=== PATIENT | male | born 1990 ===

== ENCOUNTER 2020-06-11 12:56 | Inpatient (IN) | payer OTHER, SELFPAY ==
[2020-06-11] MEDS ORDERED: SODIUM CHLORIDE 0.9% 1000 ML IV SOLN IV ONE (13:08)
--- NOTE | 2020-06-11 13:10 | Emergency Department Report ---
Blank Doc - Documentation Documentation: 30-year-old male that presents with SOB, fever, tachycardia. Has positive COVID and was sent by PCP. 1- This initial assessment/diagnostic orders/clinical plan/ treatment(s) is/are subject to change based on pt's health status, clinical progression and re- assessment by fellow clinical providers in the ED. Further treatment and workup at subsequent clinical provers discretion. Patient/guardians urged not to elope from ED as their condition may be serious if not clinically assessed and managed. 2-main ed 3- labs
[2020-06-11] MEDS ORDERED: ACETAMINOPHEN 325 MG TAB PO ONE (13:25)
[2020-06-11 13:37] LABS: Basophils % (Auto) 0.3 % (0.0-1.8); Eosinophils % (Auto) 0.1 % (0.0-4.3); Lymphocytes # (Auto) 1.4 K/mm3 (1.2-5.4); Lymphocytes % (Auto) 14.9 % (13.4-35.0); Mean Corpuscular HGB Conc 36 % (32-34); Mean Corpuscular Volume 91 fl (84-94); Monocytes % (Auto) 10.7 % (0.0-7.3); Platelet Count 215 K/mm3 (140-440); Red Blood Count 5.31 M/mm3 (3.65-5.03); Red Cell Distribution Width 13.5 % (13.2-15.2)
[2020-06-11 13:39] LABS: Hematocrit 48.1 % (35.5-45.6); Hemoglobin 17.2 gm/dl (11.8-15.2)
[2020-06-11] MEDS ORDERED: dexAMETHasone 4 MG/ML VIAL IV ONE (13:55)
[2020-06-11 13:57] LABS: Alanine Aminotransferase 69 units/L (7-56); Albumin 3.7 g/dL (3.9-5); BUN/Creatinine Ratio 16; Blood Urea Nitrogen 13 mg/dL (9-20); Calcium 9.3 mg/dL (8.4-10.2); Hemolysis Index 7
[2020-06-11] MEDS ORDERED: AZITHROMYCIN 500 MG in SODIUM CHLORIDE 0.9% 250ML 250 ML IV SCH (14:00)
[2020-06-11] MEDS ORDERED: cefTRIAXone/NS 2 GM/100 ML 2 GM/100 ML BAG IV SCH (14:00)
--- NOTE | 2020-06-11 14:02 | Emergency Department Report ---
ED Fever HPI - General Chief Complaint: Fever Stated Complaint: POSS COVID Time Seen by Provider: 06/11/20 13:08 Source: patient Exam Limitations: no limitations - History of Present Illness Initial Comments: 30-year-old male with a past medical history of obesity and 1 cigarette a day smoker presents to the hospital with complaints of cough and shortness of breath for the past 5 days. Patient had outpatient COVID test today that was positive and sent here for evaluation by his PMD. Dyspnea worse with exertion. Patient presents with a fever of 101.1. He had diarrhea several days ago that has since resolved. ED Review of Systems ROS: Stated complaint: POSS COVID Other details as noted in HPI Comment: All other systems reviewed and negative ED Past Medical Hx - Past Medical History Previous Medical History?: No - Social History Smoking Status: Current Every Day Smoker (one cigarette daily) Substance Use Type: None ED Physical Exam - General Limitations: Language Barrier - Other Other exam information: General: No acute distress Head: Atraumatic Eyes: normal appearance ENT: Moist mucous membranes Neck: Normal appearance, no midline tenderness Chest: Clear to auscultation bilaterally CV: Regular rate and rhythm Abdomen: Soft, normal bowel sounds, nontender, nondistended, no rebound or guarding Back: Normal inspection Extremity: Normal inspection, full range of motion Neuro: Alert O x 3, no facial asymmetry, speech clear, no gross motor sensory deficit Psych: Appropriate behavior Skin: No rash ED Course Vital Signs 06/11/20 13:03 Temperature 101.1 F H Pulse Rate 112 H Respiratory 20 Rate Blood Pressure 159/82 O2 Sat by Pulse 94 Oximetry ED Medical Decision Making - Lab Data Result diagrams: 06/11/20 13:16 06/11/20 13:16 Lab Results 06/11/20 06/11/20 06/11/20 Range/Units 13:16 13:16 13:16 WBC 9.4 (4.5-11.0) K/mm3 RBC 5.31 H (3.65-5.03) M/mm3 Hgb 17.2 H (11.8-15.2) gm/dl Hct 48.1 H (35.5-45.6) % MCV 91 (84-94) fl MCH 32 (28-32) pg MCHC 36 H (32-34) % RDW 13.5 (13.2-15.2) % Plt Count 215 (140-440) K/mm3 Lymph % (Auto) 14.9 (13.4-35.0) % [place] % (Auto) 10.7 H (0.0-7.3) % Eos % (Auto) 0.1 (0.0-4.3) % Baso % (Auto) 0.3 (0.0-1.8) % Lymph # 1.4 (1.2-5.4) K/mm3 [place] # 1.0 H (0.0-0.8) K/mm3 Eos # 0.0 (0.0-0.4) K/mm3 Baso # 0.0 (0.0-0.1) K/mm3 Seg Neutrophils % 74.0 H (40.0-70.0) % Seg Neutrophils # 7.0 (1.8-7.7) K/mm3 D-Dimer (0-234) ng/mlDDU Sodium 139 (137-145) mmol/L Potassium 4.6 (3.6-5.0) mmol/L Chloride 101.1 (98-107) mmol/L Carbon Dioxide 23 (22-30) mmol/L Anion Gap 20 mmol/L BUN 13 (9-20) mg/dL Creatinine 0.8 (0.8-1.3) mg/dL Estimated GFR > 60 ml/min BUN/Creatinine Ratio 16 % Glucose 139 H (75-100) mg/dL Lactic Acid 2.80 H* (0.7-2.0) mmol/L Calcium 9.3 (8.4-10.2) mg/dL Total Bilirubin 0.70 (0.1-1.2) mg/dL AST 61 H (5-40) units/L ALT 69 H (7-56) units/L Alkaline Phosphatase 100 (35-129) units/L Lactate Dehydrogenase (91-180) units/L C-Reactive Protein (0.00-1.30) mg/dL Total Protein 8.7 H (6.3-8.2) g/dL Albumin 3.7 L (3.9-5) g/dL Albumin/Globulin Ratio 0.7 % Procalcitonin (<0.15) ng/mL 06/11/20 06/11/20 06/11/20 Range/Units 13:16 13:16 13:16 WBC (4.5-11.0) K/mm3 RBC (3.65-5.03) M/mm3 Hgb (11.8-15.2) gm/dl Hct (35.5-45.6) % MCV (84-94) fl MCH (28-32) pg MCHC (32-34) % RDW (13.2-15.2) % Plt Count (140-440) K/mm3 Lymph % (Auto) (13.4-35.0) % [place] % (Auto) (0.0-7.3) % Eos % (Auto) (0.0-4.3) % Baso % (Auto) (0.0-1.8) % Lymph # (1.2-5.4) K/mm3 [place] # (0.0-0.8) K/mm3 Eos # (0.0-0.4) K/mm3 Baso # (0.0-0.1) K/mm3 Seg Neutrophils % (40.0-70.0) % Seg Neutrophils # (1.8-7.7) K/mm3 D-Dimer 382.11 H (0-234) ng/mlDDU Sodium (137-145) mmol/L Potassium (3.6-5.0) mmol/L Chloride (98-107) mmol/L Carbon Dioxide (22-30) mmol/L Anion Gap mmol/L BUN (9-20) mg/dL Creatinine (0.8-1.3) mg/dL Estimated GFR ml/min BUN/Creatinine Ratio % Glucose 138 H (75-100) mg/dL Lactic Acid (0.7-2.0) mmol/L Calcium (8.4-10.2) mg/dL Total Bilirubin (0.1-1.2) mg/dL AST (5-40) units/L ALT (7-56) units/L Alkaline Phosphatase (35-129) units/L Lactate Dehydrogenase 477 H (91-180) units/L C-Reactive Protein 5.40 H (0.00-1.30) mg/dL Total Protein (6.3-8.2) g/dL Albumin (3.9-5) g/dL Albumin/Globulin Ratio % Procalcitonin 0.09 (<0.15) ng/mL - EKG Data -: EKG Interpreted by Wy EKG shows normal: sinus rhythm, intervals (qtc 429), ST-T waves (no stemi) Rate: normal (96) - Radiology Data Radiology results: report reviewed CHEST 1 VIEW 06/11/2020 12:54 PM INDICATION / CLINICAL INFORMATION: cough/fever. COVID-19 Status: Positive COMPARISON: None available. FINDINGS: SUPPORT DEVICES: None. HEART / MEDIASTINUM: No significant abnormality. LUNGS / PLEURA: Moderately extensive bilateral patchy pulmonary opacities. No pneumothorax. ADDITIONAL FINDINGS: No significant additional findings. IMPRESSION: 1. Bilateral pulmonary opacities which can be seen in atypical/viral pneumonia. - Medical Decision Making Patient is culture positive with COVID associated pneumonia and mild hypoxia. Risk factor of obesity and a smoker. Patient will be admitted to the hospital for further treatment. Rocephin, azithromycin, IV fluids, and Decadron 6 mg IV initiated in the ED. ID consult ordered as well as repeat COVID tests and order set. Hospitalist to admit Critical Care Time: No Critical care attestation.: If time is entered above; I have spent that time in minutes in the direct care of this critically ill patient, excluding procedure time. ED Disposition Clinical Impression: COVID-19, Bilateral pneumonia, Obesity, Hypoxia, Smoker Disposition: 09 OP ADMIT IP TO THIS HOSP Is pt being admited?: Yes Condition: Stable Time of Disposition: 14:32
[2020-06-11 14:04] LABS: C-Reactive Protein 5.4 mg/dL (0.00-1.30)
--- NOTE | 2020-06-11 14:19 | XRay Report ---
CHEST 1 VIEW 06/11/2020 12:54 PM INDICATION / CLINICAL INFORMATION: cough/fever. COVID-19 Status: Positive COMPARISON: None available. FINDINGS: SUPPORT DEVICES: None. HEART / MEDIASTINUM: No significant abnormality. LUNGS / PLEURA: Moderately extensive bilateral patchy pulmonary opacities. No pneumothorax. ADDITIONAL FINDINGS: No significant additional findings. IMPRESSION: 1. Bilateral pulmonary opacities which can be seen in atypical/viral pneumonia. Signer Name: Geo Jade MD Signed: 06/11/2020 2:14 PM Workstation Name: [id number]
--- NOTE | 2020-06-11 14:36 | History and Physical Report ---
History of Present Illness Chief complaint: I am sick History of present illness: 30 YO Male with Obesity Hypoventilation Syndrome, Nicotine Dependence presents to ED for evaluation. Patient states that he has been "feeling sick" over the past 1 week with progressively worsening symptoms over the same timeframe. Kat wright states he has experienced dry cough, shortness of breath, fatigue, malaise, decreased exercise tolerance, generalized weakness, body aches, and fever to 101.1 F over the past 5 days. Patient was seen and evaluated by his primary care physician after having tested positive for marie virus as an outpatient. EMS was notified and upon arrival the patient was found to be in distress. The patient was placed on supplemental oxygen and transported to [facility] for further care and evaluation of the aforementioned symptoms. Patient seen and evaluated in the emergency department. Lab and imaging studies reviewed. Patient found to have a pulse oximetry of 88% with exertion which is consistent with acute hypoxemic respiratory failure. Patient was also found to have a chest x-ray which revealed bilateral pneumonia. The patient was placed on supplemental oxygen as well as initiated on pneumonia protocol as well as the COVID-19 protocol and admitted to medical floor. Infectious disease service consulted in ED. Coronavirus PCR is ordered and pending at the time of the admission. Patient denies chest pain, palpitations, trauma, syncope, known ill contacts. No prior admission for review. No medication list for reconciliation at the time of admission. Past History Past Medical History: other (See HPI) Past Surgical History: No surgical history, Other (Reviewed) Social history: single, smoking. denies: alcohol abuse, prescription drug abuse Family history: hypertension Medications and Allergies Allergies Allergy/AdvReac Type Severity Reaction Status Date / Time No Known Allergies Allergy Unverified 06/11/20 13:08 Active Meds: Active Medications Ceftriaxone Sodium (Rocephin/Ns 2 Gm/100 Ml) 2 gm in 100 mls @ 200 mls/hr IV Q24HR NELLIE; Protocol Last Admin: 06/11/20 14:12 Dose: 200 mls/hr Documented by: Azithromycin 500 mg/ Sodium (Chloride) 250 mls @ 250 mls/hr IV Q24HR NELLIE; Pro tocol Last Admin: 06/11/20 14:19 Dose: 250 mls/hr Documented by: Review of Systems Constitutional: fever, fatigue, weakness, malaise, no weight loss, no weight gain Ears, nose, mouth and throat: no ear pain, no ear discharge, no tinnitis, no decreased hearing, no nose pain Cardiovascular: no chest pain, no orthopnea, no palpitations, no rapid/irregular heart beat, no edema Respiratory: cough, cough with sputum, shortness of breath, no excessive sputum, no hemoptysis, no pleurisy, no pain Gastrointestinal: no nausea, no vomiting, no diarrhea, no constipation Rectal: no pain, no incontinence, no bleeding Musculoskeletal: no neck stiffness, no neck pain, no shooting arm pain, no arm numbness/tingling, no low back pain, no shooting leg pain Integumentary: no rash, no pruritis, no redness, no sores, no wounds Neurological: no transient paralysis, no paralysis, no parathesias, no tingling Psychiatric: no anxiety, no change in sleep habits, no sleep disturbances, no insomnia, no hypersomnia, no change in libido, no suicidal ideation Endocrine: no cold intolerance, no heat intolerance, no polyphagia, no polyuria, no nocturia Hematologic/Lymphatic: no easy bruising, no easy bleeding Allergic/Immunologic: no urticaria, no wheezing, no persistent infections, no anaphylaxis Exam - Constitutional Vitals: Temp Pulse Resp BP Pulse Ox 101.1 F H 112 H 20 159/82 94 06/11/20 13:03 06/11/20 13:03 06/11/20 13:03 06/11/20 13:03 06/11/20 13:03 General appearance: Present: mild distress, obese - EENT Eyes: Present: PERRL ENT: hearing intact, clear oral mucosa - Neck Neck: Present: supple, normal ROM - Respiratory Respiratory effort: labored Respiratory: bilateral: diminished, rhonchi - Cardiovascular Rhythm: other (Tachycardia) Heart Sounds: Present: S1 & S2. Absent: rub, click - Extremities Extremities: pulses symmetrical, No edema Peripheral Pulses: within normal limits - Abdominal General gastrointestinal: Present: soft, non-tender, non-distended, normal bowel sounds Male genitourinary: Present: normal - Integumentary Integumentary: Present: clear, warm, dry - Musculoskeletal Musculoskeletal: generalized weakness - Psychiatric Psychiatric: appropriate mood/affect, intact judgment & insight - Neurologic Neurologic: CNII-XII intact, moves all extremities Results - Labs CBC & Chem 7: 06/11/20 13:16 06/11/20 13:16 Labs: Abnormal lab results 06/11/20 06/11/20 06/11/20 Range/Units 13:16 13:16 13:16 RBC 5.31 H (3.65-5.03) M/mm3 Hgb 17.2 H (11.8-15.2) gm/dl Hct 48.1 H (35.5-45.6) % MCHC 36 H (32-34) % [place] % (Auto) 10.7 H (0.0-7.3) % [place] # 1.0 H (0.0-0.8) K/mm3 Seg Neutrophils % 74.0 H (40.0-70.0) % D-Dimer (0-234) ng/mlDDU Glucose 139 H (75-100) mg/dL Lactic Acid 2.80 H* (0.7-2.0) mmol/L AST 61 H (5-40) units/L ALT 69 H (7-56) units/L Lactate Dehydrogenase (91-180) units/L C-Reactive Protein (0.00-1.30) mg/dL Total Protein 8.7 H (6.3-8.2) g/dL Albumin 3.7 L (3.9-5) g/dL 06/11/20 06/11/20 Range/Units 13:16 13:16 RBC (3.65-5.03) M/mm3 Hgb (11.8-15.2) gm/dl Hct (35.5-45.6) % MCHC (32-34) % [place] % (Auto) (0.0-7.3) % [place] # (0.0-0.8) K/mm3 Seg Neutrophils % (40.0-70.0) % D-Dimer 382.11 H (0-234) ng/mlDDU Glucose 138 H (75-100) mg/dL Lactic Acid (0.7-2.0) mmol/L AST (5-40) units/L ALT (7-56) units/L Lactate Dehydrogenase 477 H (91-180) units/L C-Reactive Protein 5.40 H (0.00-1.30) mg/dL Total Protein (6.3-8.2) g/dL Albumin (3.9-5) g/dL Assessment and Plan - Patient Problems (1) Acute hypoxemic respiratory failure Current Visit: Yes Status: Acute Plan to address problem: Chest x-ray, supplemental oxygen, pulse oximetry, nebulizer therapy via MDI, pulmonary toilet, incentive spirometry, prone positioning while in bed. (2) Obesity hypoventilation syndrome Current Visit: Yes Status: Acute Plan to address problem: Supplemental oxygen, pulse oximetry, nebulizer therapy as clinically indicated, balanced diet, increase physical activity at discharge. (3) Bilateral pneumonia Current Visit: No Status: Acute Plan to address problem: Pneumonia protocol: Chest x-ray, CBC, BMP, IV antibiotic therapy, supplemental oxygen, pulse oximetry, blood culture. (4) COVID-19 Current Visit: No Status: Acute Plan to address problem: Coronavirus protocol: Infectious disease service consulted in ED, coronavirus PCR ordered in ED, contact precautions, isolation precautions, prone positioning while in bed, incentive spirometry, IV steroid therapy, supportive care. (5) DVT prophylaxis Current Visit: Yes Status: Acute Plan to address problem: SCD to bilateral lower extremities while in bed, prophylactic heparin
[2020-06-11] MEDS ORDERED: ONDANSETRON 4 MG/2 ML INJ IV PRN (14:37)
[2020-06-11] MEDS ORDERED: ACETAMINOPHEN 325 MG TAB PO PRN (14:37)
[2020-06-11 16:50] LABS: Bacteria,Urine 1+ /HPF (Negative); Bilirubin,Urine NEG (Negative); Blood,Urine SM (Negative); Color,Urine Amber (Yellow); Mucus,Urine 2+ /HPF
[2020-06-11 16:53] LABS: Protein,Urine >500 mg/dL (Negative)
[2020-06-11] MEDS ORDERED: REMDESIVIR 200 MG in SODIUM CHLORIDE 0.9% 250ML 250 ML IV ONE (17:44)
--- NOTE | 2020-06-11 17:44 | Consultation ---
History of Present Illness - Reason for Consult Consult date: 06/11/20 - History of Present Illness 30-year-old male past medical history obesity, nicotine dependence admitted to the hospital with 1 week of feeling ill. He notes that since the onset of symptoms been progressively worse. He complains of dry cough, shortness of breath, fatigue, fevers and myalgias. He went to have primary care physician and tested positive for COVID-19 at that time. He was recovering at home, however symptoms became worse, as such he came to the hospital and was found to be hypoxic. Febrile to 101.1 with a normal white count. Currently seeing ceftriaxone azithromycin. Procalcitonin was normal. Blood cultures are currently pending. Imaging personally reviewed: Chest x-ray: Bilateral opacities Review of Systems: Bold if positive, otherwise negative General: fevers, chills, rigors HEENT: visual disturbance, diplopia, eye pain Respiratory: cough, sputum, hemoptysis, shortness of breath Cardiovascular: chest pain, syncope Gastrointestinal: nausea, vomiting, diarrhea, abdominal pain Genitourinary: dysuria, hematuria, flank pain Musculoskeletal: neck pain, back pain, joint pain, edema Neurologic: headaches, seizures Hematologic: easy bruising or bleeding Endocrine: night sweats, acute weight loss Skin: rash, jaundice, redness Psychiatric: suicidal, homicidal ideation Past History Past Medical History: other (See HPI) Past Surgical History: No surgical history, Other (Reviewed) Social history: single, smoking. denies: alcohol abuse, prescription drug abuse Family history: hypertension Medications and Allergies Allergies Allergy/AdvReac Type Severity Reaction Status Date / Time No Known Allergies Allergy Unverified 06/11/20 13:08 Active Meds: Active Medications Acetaminophen (Tylenol) 650 mg PO Q4H PRN PRN Reason: Pain MILD(1-3)/Fever >100.5/[place] Heparin Sodium (Porcine) (Heparin) 5,000 unit SUB-Q Q12HR NELLIE Ceftriaxone Sodium (Rocephin/Ns 2 Gm/100 Ml) 2 gm in 100 mls @ 200 mls/hr IV Q24HR NELLIE; Protocol Stop: 06/13/20 23:59 Last Infusion: 06/11/20 14:42 Dose: Infused Documented by: Azithromycin 500 mg/ Sodium (Chloride) 250 mls @ 250 mls/hr IV Q24HR NELLIE; Protocol Stop: 06/13/20 23:59 Last Infusion: 06/11/20 15:20 Dose: Infused Documented by: Methylprednisolone Sodium Succinate (Solu-Medrol) 40 mg IV Q8HR [facility] Ondansetron HCl (Zofran) 4 mg IV Q8H PRN PRN Reason: Nausea And Vomiting Sodium Chloride (Sodium Chloride Flush Syringe 10 Ml) 10 ml IV BID NELLIE Sodium Chloride (Sodium Chloride Flush Syringe 10 Ml) 10 ml IV PRN PRN PRN Reason: LINE FLUSH Physical Examination - Physical Exam Narrative exam: Physical exam deferred due to PPE conservation strategy. Please refer to primary team's note. - Constitutional Vitals: Vital Signs Temp Pulse Resp BP Pulse Ox 100.3 F H 87 25 H 117/70 96 06/11/20 15:00 06/11/20 15:00 06/11/20 15:00 06/11/20 15:00 06/11/20 15:00 Temperature -Last 24 Hours Temperature 100.3 F Temperature 101.1 F Results - Labs CBC & Chem 7: 06/11/20 13:16 06/11/20 13:16 Labs: Abnormal lab results 06/11/20 06/11/20 06/11/20 Range/Units 13:16 13:16 13:16 RBC 5.31 H (3.65-5.03) M/mm3 Hgb 17.2 H (11.8-15.2) gm/dl Hct 48.1 H (35.5-45.6) % MCHC 36 H (32-34) % [place] % (Auto) 10.7 H (0.0-7.3) % [place] # 1.0 H (0.0-0.8) K/mm3 Seg Neutrophils % 74.0 H (40.0-70.0) % D-Dimer (0-234) ng/mlDDU Glucose 139 H (75-100) mg/dL Lactic Acid 2.80 H* (0.7-2.0) mmol/L Ferritin (30.0-300.0) ng/mL AST 61 H (5-40) units/L ALT 69 H (7-56) units/L Lactate Dehydrogenase (91-180) units/L C-Reactive Protein (0.00-1.30) mg/dL Total Protein 8.7 H (6.3-8.2) g/dL Albumin 3.7 L (3.9-5) g/dL 06/11/20 06/11/20 06/11/20 Range/Units 13:16 13:16 13:16 RBC (3.65-5.03) M/mm3 Hgb (11.8-15.2) gm/dl Hct (35.5-45.6) % MCHC (32-34) % [place] % (Auto) (0.0-7.3) % [place] # (0.0-0.8) K/mm3 Seg Neutrophils % (40.0-70.0) % D-Dimer 382.11 H (0-234) ng/mlDDU Glucose 138 H (75-100) mg/dL Lactic Acid (0.7-2.0) mmol/L Ferritin 2458.0 H (30.0-300.0) ng/mL AST (5-40) units/L ALT (7-56) units/L Lactate Dehydrogenase 477 H (91-180) units/L C-Reactive Protein 5.40 H (0.00-1.30) mg/dL Total Protein (6.3-8.2) g/dL Albumin (3.9-5) g/dL Assessment and Plan Cultures: Blood culture 06/11/2020 pending A/P: 28-year-old man past medical history obesity, nicotine dependence admitted with COVID-19 #Acute hypoxemic respiratory failure: Likely secondary to COVID-19 infection. Currently on nasal cannula #Severe COVID-19 pneumonia: Patient presented with a week of symptoms, chest x- ray with diffuse bilateral infiltrates, admission O2 sats 88% on room air. Patient is increased for micro-thrombotic and thromboembolic events. #Obesity: Associated with worse COVID-19 outcomes Recs: -Start Remdesivir 200 mg IV q day x 1 followed by 100 mg IV q day x 4 days. CrCl>30. Pharmacy notified. -Continue steroids per primary. -Obtain daily inflammatory markers - ferritin, Ddimer, CRP, LDH -Stop antibiotics as procalcitonin normal. -Anticoagulation per protocol Thank you for the consult, we will continue to follow. Gayathri Mansfield MD [facility] ([facility] M: [phone] O: [phone] F: [phone]
[2020-06-11] MEDS ORDERED: REMDESIVIR 100 MG VIAL IV ONE (18:00)
[2020-06-11] MEDS: SODIUM CHLORIDE 0.9% 50 ML IVPB IV SCH (21:23)
[2020-06-11] MEDS: methylPREDNISolone Sod Succinate 40 MG/1 ML INJ IV SCH (21:24)
[2020-06-11] MEDS: HEPARIN 5,000 UNIT/1 ML VIAL SUB-Q SCH (21:24)
[2020-06-12] MEDS: methylPREDNISolone Sod Succinate 40 MG/1 ML INJ IV SCH ×3 (05:06→21:54)
[2020-06-12 06:06] LABS: Basophils % (Auto) 0.7 % (0.0-1.8); Hematocrit 45.4 % (35.5-45.6); Hemoglobin 15.7 gm/dl (11.8-15.2); Lymphocytes # (Auto) 1.2 K/mm3 (1.2-5.4); Lymphocytes % (Auto) 24.3 % (13.4-35.0); Mean Corpuscular HGB Conc 35 % (32-34); Mean Corpuscular Volume 91 fl (84-94); Monocytes # (Auto) 0.5 K/mm3 (0.0-0.8); Monocytes % (Auto) 10.2 % (0.0-7.3); Platelet Count 221 K/mm3 (140-440); Red Cell Distribution Width 13.8 % (13.2-15.2)
[2020-06-12 06:20] LABS: Blood Urea Nitrogen 12 mg/dL (9-20); Calcium 8.3 mg/dL (8.4-10.2); Hemolysis Index 7
[2020-06-12 06:25] LABS: BUN/Creatinine Ratio 20
[2020-06-12] MEDS ORDERED: ALBUTEROL 8.5 GM MDI INHALATION IH PRN (08:00)
[2020-06-12] MEDS: HEPARIN 5,000 UNIT/1 ML VIAL SUB-Q SCH ×2 (09:32→21:55)
--- NOTE | 2020-06-12 12:13 | Progress Note ---
Assessment and Plan --Acute hypoxemic respiratory failure due to COVID 19 PNA cont supplemental oxygen, pulse oximetry, nebulizer therapy via MDI, pulmonary t oilet, incentive spirometry, prone positioning while in bed. cont to treat for COVID 19 -- COVID 19 pneumonia Infectious disease service consulted in ED, contact precautions, isolation precautions, prone positioning while in bed Started on empiric steroid, also started on Ramdesivir for 5 days Follow inflammatory markers --Obesity diet and exercise recommendation when clinically stable -- DVT prophylaxis SCD to bilateral lower extremities while in bed, prophylactic heparin 06/12; continue IV steroid and continue Ramdesivir. Continue to follow inflammatory markers. Subjective Date of service: 06/12/20 Interval history: Patient seen and examined. Medical records and medication list reviewed. No acute event overnight noted by the RN. Patient complains of difficulty breathing on exertion and dry cough. Patient is tolerating diet. Discussed plan of care at bedside with patient. Objective - Exam Narrative Exam: GENERAL: well-developed and well-nourished male lying on bed appeared to be in no discomfort. HEENT: Normocephalic. Atraumatic. No conjunctival congestion or icterus. Patient has moist mucous membranes. NECK: Supple. Trachea midline. CHEST/LUNGS: Clear to auscultated bilaterally, breathing nonlabored. No wheezes crackles or rhonchi. HEART/CARDIOVASCULAR: Regular in rate and rhythm. S1 and S2 positive. ABDOMEN: Abdomen is soft, nontender. Patient has normal bowel sounds. SKIN: There is no rash. Warm and dry. NEURO: No focal motor deficit. Follows command. MUSCULOSKELETAL: No joint effusion or tenderness. EXTRIMITY: No edema, no cyanosis or clubbing. PSYCH: Cooperative. - Constitutional Vitals: Vital Signs - 12hr 06/12/20 06/12/20 06/12/20 05:04 07:35 08:47 Temperature 98.3 F Pulse Rate 78 Respiratory 20 18 Rate Blood Pressure 107/58 O2 Sat by Pulse 91 95 Oximetry - Labs CBC & Chem 7: 06/12/20 05:25 06/12/20 05:25 Labs: Abnormal lab results 06/11/20 06/11/20 06/11/20 Range/Units 13:16 13:16 13:16 RBC 5.31 H (3.65-5.03) M/mm3 Hgb 17.2 H (11.8-15.2) gm/dl Hct 48.1 H (35.5-45.6) % MCHC 36 H (32-34) % [place] % (Auto) 10.7 H (0.0-7.3) % [place] # 1.0 H (0.0-0.8) K/mm3 Seg Neutrophils % 74.0 H (40.0-70.0) % D-Dimer (0-234) ng/mlDDU Creatinine (0.8-1.3) mg/dL Glucose 139 H (75-100) mg/dL Lactic Acid 2.80 H* (0.7-2.0) mmol/L Calcium (8.4-10.2) mg/dL Ferritin (30.0-300.0) ng/mL AST 61 H (5-40) units/L ALT 69 H (7-56) units/L Lactate Dehydrogenase (91-180) units/L C-Reactive Protein (0.00-1.30) mg/dL Total Protein 8.7 H (6.3-8.2) g/dL Albumin 3.7 L (3.9-5) g/dL 06/11/20 06/11/20 06/11/20 Range/Units 13:16 13:16 13:16 RBC (3.65-5.03) M/mm3 Hgb (11.8-15.2) gm/dl Hct (35.5-45.6) % MCHC (32-34) % [place] % (Auto) (0.0-7.3) % [place] # (0.0-0.8) K/mm3 Seg Neutrophils % (40.0-70.0) % D-Dimer 382.11 H (0-234) ng/mlDDU Creatinine (0.8-1.3) mg/dL Glucose 138 H (75-100) mg/dL Lactic Acid (0.7-2.0) mmol/L Calcium (8.4-10.2) mg/dL Ferritin 2458.0 H (30.0-300.0) ng/mL AST (5-40) units/L ALT (7-56) units/L Lactate Dehydrogenase 477 H (91-180) units/L C-Reactive Protein 5.40 H (0.00-1.30) mg/dL Total Protein (6.3-8.2) g/dL Albumin (3.9-5) g/dL 06/11/20 06/12/20 06/12/20 Range/Units 20:23 05:25 05:25 RBC (3.65-5.03) M/mm3 Hgb 15.7 H (11.8-15.2) gm/dl Hct (35.5-45.6) % MCHC 35 H (32-34) % [place] % (Auto) 10.2 H (0.0-7.3) % [place] # (0.0-0.8) K/mm3 Seg Neutrophils % (40.0-70.0) % D-Dimer (0-234) ng/mlDDU Creatinine 0.6 L (0.8-1.3) mg/dL Glucose 192 H (75-100) mg/dL Lactic Acid 2.30 H* (0.7-2.0) mmol/L Calcium 8.3 L (8.4-10.2) mg/dL Ferritin (30.0-300.0) ng/mL AST (5-40) units/L ALT (7-56) units/L Lactate Dehydrogenase (91-180) units/L C-Reactive Protein (0.00-1.30) mg/dL Total Protein (6.3-8.2) g/dL Albumin (3.9-5) g/dL
[2020-06-12] MEDS: REMDESIVIR 100 MG in SODIUM CHLORIDE 0.9% 250ML 250 ML IV SCH (21:54)
[2020-06-12] MEDS: SODIUM CHLORIDE 0.9% 50 ML IVPB IV SCH (21:57)
[2020-06-13] MEDS: HEPARIN 5,000 UNIT/1 ML VIAL SUB-Q SCH ×2 (09:30→21:54)
--- NOTE | 2020-06-13 11:11 | Progress Note ---
Assessment and Plan Cultures: Blood culture 06/11/2020 pending A/P: 28-year-old man past medical history obesity, nicotine dependence admitted with COVID-19 #Acute hypoxemic respiratory failure: Likely secondary to COVID-19 infection. Currently on nasal cannula #Severe COVID-19 pneumonia: Patient presented with a week of symptoms, chest x- ray with diffuse bilateral infiltrates, admission O2 sats 88% on room air. Patient is increased for micro-thrombotic and thromboembolic events. #Obesity: Associated with worse COVID-19 outcomes Recs: -Continue Remdesivir 200 mg IV q day x 1 followed by 100 mg IV q day x 4 days. CrCl>30. Pharmacy notified. D3 of 5. -Continue steroids per primary. -Obtain daily inflammatory markers - ferritin, Ddimer, CRP, LDH -Anticoagulation per protocol Thank you for the consult, we will continue to follow. Gayathri Mansfield MD [facility] ([facility]) M: [phone] O: [phone] F: [phone] Subjective Date of service: 06/13/20 Interval history: Afebrile over last 24 hours. White count 5.1. On 3L NC Objective - Exam Narrative Exam: Physical exam deferred due to PPE conservation strategy. Please refer to primary team's note. - Constitutional Vitals: Vital Signs Temp Pulse Resp BP Pulse Ox 98.4 F 68 16 121/84 95 06/13/20 04:32 06/13/20 04:32 06/13/20 07:30 06/13/20 04:32 06/13/20 08:16 Temperature -Last 24 Hours Temperature 98.4 F Temperature 98.5 F Temperature 98.4 F Temperature 97.6 F - Labs CBC & Chem 7: 06/12/20 05:25 06/12/20 05:25 Labs: Abnormal lab results 06/12/20 06/13/20 06/13/20 Range/Units 08:49 08:39 08:39 Ferritin 1720.0 H (30.0-300.0) ng/mL Lactate Dehydrogenase 323 H (91-180) units/L Coronavirus (PCR) Positive A (Negative)
--- NOTE | 2020-06-13 13:28 | Progress Note ---
Assessment and Plan --Acute hypoxemic respiratory failure due to COVID 19 PNA cont supplemental oxygen, pulse oximetry, nebulizer therapy via MDI, pulmonary t oilet, incentive spirometry, prone positioning while in bed. cont to treat for COVID 19 -- COVID 19 pneumonia Infectious disease service consulted in ED, contact precautions, isolation precautions, prone positioning while in bed Started on empiric steroid, also started on Ramdesivir for 5 days Follow inflammatory markers --Obesity diet and exercise recommendation when clinically stable -- DVT prophylaxis SCD to bilateral lower extremities while in bed, prophylactic heparin 06/12; continue IV steroid and continue Ramdesivir day 2. Continue to follow inflammatory markers. 06/13: continue IV steroid and continue Ramdesivir day3 - last day 06/15. will assess for home O2 on discharge Subjective Date of service: 06/13/20 Interval history: Patient seen and examined. Medical records and medication list reviewed. No acute event overnight noted by the RN. Patient complains of difficulty breathing on exertion and dry cough. Patient is tolerating diet. Discussed plan of care at bedside with patient. Objective - Exam Narrative Exam: GENERAL: well-developed and well-nourished male lying on bed appeared to be in no discomfort. HEENT: Normocephalic. Atraumatic. No conjunctival congestion or icterus. Patient has moist mucous membranes. NECK: Supple. Trachea midline. CHEST/LUNGS: Clear to auscultated bilaterally, breathing nonlabored. No wheezes crackles or rhonchi. HEART/CARDIOVASCULAR: Regular in rate and rhythm. S1 and S2 positive. ABDOMEN: Abdomen is soft, nontender. Patient has normal bowel sounds. SKIN: There is no rash. Warm and dry. NEURO: No focal motor deficit. Follows command. MUSCULOSKELETAL: No joint effusion or tenderness. EXTRIMITY: No edema, no cyanosis or clubbing. PSYCH: Cooperative. - Constitutional Vitals: Vital Signs - 12hr 06/13/20 06/13/20 06/13/20 04:32 07:30 08:16 Temperature 98.4 F Pulse Rate 68 Respiratory 20 16 Rate Blood Pressure 121/84 O2 Sat by Pulse 94 95 Oximetry - Labs CBC & Chem 7: 06/12/20 05:25 06/12/20 05:25 Labs: Abnormal lab results 06/12/20 06/13/20 06/13/20 Range/Units 08:49 08:39 08:39 Ferritin 1720.0 H (30.0-300.0) ng/mL Lactate Dehydrogenase 323 H (91-180) units/L Coronavirus (PCR) Positive A (Negative)
[2020-06-13] MEDS: methylPREDNISolone Sod Succinate 40 MG/1 ML INJ IV SCH ×2 (15:09→21:54)
[2020-06-13] MEDS: REMDESIVIR 100 MG in SODIUM CHLORIDE 0.9% 250ML 250 ML IV SCH (21:53)
[2020-06-13] MEDS: SODIUM CHLORIDE 0.9% 50 ML IVPB IV SCH (21:54)
[2020-06-14] MEDS: methylPREDNISolone Sod Succinate 40 MG/1 ML INJ IV SCH ×3 (05:33→22:19)
[2020-06-14] MEDS: HEPARIN 5,000 UNIT/1 ML VIAL SUB-Q SCH ×2 (09:58→22:19)
--- NOTE | 2020-06-14 13:15 | Progress Note ---
Assessment and Plan --Acute hypoxemic respiratory failure due to COVID 19 PNA cont supplemental oxygen, pulse oximetry, nebulizer therapy via MDI, pulmonary t oilet, incentive spirometry, prone positioning while in bed. cont to treat for COVID 19 -- COVID 19 pneumonia Infectious disease service consulted in ED, contact precautions, isolation precautions, prone positioning while in bed Started on empiric steroid, also started on Ramdesivir for 5 days - last day tomorrow Follow inflammatory markers --Obesity diet and exercise recommendation when clinically stable assess for sleep apnea as outpt -- tobacco abuse, counselled for cessation -- DVT prophylaxis SCD to bilateral lower extremities while in bed, prophylactic heparin Brief history: 30 YO Male with Obesity, Nicotine Dependence presents to ED for evaluation of d ry cough, shortness of breath, fatigue, malaise, decreased exercise tolerance, generalized weakness, body aches, and fever to 101.1 F over the past 5 days. Patient was tested positive for marie virus as an outpatient. In the ER Patient found to have a pulse oximetry of 88% with exertion which is consistent with acute hypoxemic respiratory failure. chest x-ray which revealed bilateral pneumonia. Infectious disease service consulted in ED. Coronavirus PCR is ordered and positive. 06/12; continue IV steroid and continue Ramdesivir day 2. Continue to follow inflammatory markers. 06/13: continue IV steroid and continue Ramdesivir day3 - last day 06/15. will assess for home O2 on discharge 06/14: day 4 of Ramdesivir today. if clinicaly stable then d/c tomorrow after last dose of Ramdesivir with total 10 days of dexamethasone. assess for home o2. Subjective Date of service: 06/14/20 Interval history: Patient seen and examined. Medical records and medication list reviewed. No acute event overnight noted by the RN. Patient complains of difficulty breathing on exertion and dry cough. Patient is tolerating diet. Discussed plan of care at bedside with patient. Objective - Exam Narrative Exam: GENERAL: well-developed and well-nourished male lying on bed appeared to be in no discomfort. HEENT: Normocephalic. Atraumatic. No conjunctival congestion or icterus. Patient has moist mucous membranes. NECK: Supple. Trachea midline. CHEST/LUNGS: Clear to auscultated bilaterally, breathing nonlabored. No wheezes crackles or rhonchi. HEART/CARDIOVASCULAR: Regular in rate and rhythm. S1 and S2 positive. ABDOMEN: Abdomen is soft, nontender. Patient has normal bowel sounds. SKIN: There is no rash. Warm and dry. NEURO: No focal motor deficit. Follows command. MUSCULOSKELETAL: No joint effusion or tenderness. EXTRIMITY: No edema, no cyanosis or clubbing. PSYCH: Cooperative. - Constitutional Vitals: Vital Signs - 12hr 06/14/20 06/14/20 06/14/20 04:06 10:00 11:43 Temperature 97.8 F 98.2 F Pulse Rate 64 62 Respiratory 18 24 Rate Blood Pressure 125/91 142/89 O2 Sat by Pulse 98 96 94 Oximetry - Labs CBC & Chem 7: 06/12/20 05:25 06/12/20 05:25
--- NOTE | 2020-06-14 14:56 | Progress Note ---
Assessment and Plan Cultures: Blood culture 06/11/2020 pending A/P: 28-year-old man past medical history obesity, nicotine dependence admitted with COVID-19 #Acute hypoxemic respiratory failure: Likely secondary to COVID-19 infection. Currently on nasal cannula #Severe COVID-19 pneumonia: Patient presented with a week of symptoms, chest x- ray with diffuse bilateral infiltrates, admission O2 sats 88% on room air. Patient is increased for micro-thrombotic and thromboembolic events. #Obesity: Associated with worse COVID-19 outcomes Recs: -Continue Remdesivir 200 mg IV q day x 1 followed by 100 mg IV q day x 4 days. CrCl>30. Pharmacy notified. D4 of 5. -Continue steroids per primary. -Obtain daily inflammatory markers - ferritin, Ddimer, CRP, LDH -Anticoagulation per protocol Thank you for the consult, we will continue to follow. Gayathri Mansfield MD [facility] ([facility]) M: [phone] O: [phone] F: [phone] Subjective Date of service: 06/14/20 Interval history: Afebrile, normal white count. On 3.5 L nasal cannula. No changes at present. Objective - Exam Narrative Exam: Physical exam deferred due to PPE conservation strategy. Please refer to primary team's note. - Constitutional Vitals: Vital Signs Temp Pulse Resp BP Pulse Ox 98.2 F 62 24 142/89 94 06/14/20 11:43 06/14/20 11:43 06/14/20 11:43 06/14/20 11:43 06/14/20 11:43 Temperature -Last 24 Hours Temperature 98.2 F Temperature 97.8 F Temperature 98.0 F Temperature 98.0 F - Labs CBC & Chem 7: 06/12/20 05:25 06/12/20 05:25
[2020-06-14] MEDS: REMDESIVIR 100 MG in SODIUM CHLORIDE 0.9% 250ML 250 ML IV SCH (22:19)
[2020-06-14] MEDS: SODIUM CHLORIDE 0.9% 50 ML IVPB IV SCH (22:19)
[2020-06-15] MEDS: methylPREDNISolone Sod Succinate 40 MG/1 ML INJ IV SCH (05:10)
--- NOTE | 2020-06-15 09:48 | Discharge Summary ---
Providers - Providers Date of Admission: 06/11/20 14:37 Date of discharge: 06/15/20 Attending physician: TERRIE SANDERS MD 06/11/20 14:02 Consult to Physician [CONS] Urgent Comment: Consulting Provider: ANGELA MEJIA Physician Instructions: Reason For Exam: covid pneumonia [facility] Reason for admission: acute respiratory failure, COVID-19 infection Condition: Stable Pertinent studies: Chest x-ray EKG Hospital course: 30 YO Male with Obesity Hypoventilation Syndrome, Nicotine Dependence presents to ED for evaluation. Patient states that he has been "feeling sick" over the past 1 week with progressively worsening symptoms over the same timeframe. Patient states he has experienced dry cough, shortness of breath, fatigue, malaise, decreased exercise tolerance, generalized weakness, body aches, and fever to 101.1 F over the past 5 days. Patient was seen and evaluated by his primary care physician after having tested positive for marie virus as an outpatient. EMS was notified and upon arrival the patient was found to be in distress. The patient was placed on supplemental oxygen and transported to [facility] for further care and evaluation of the aforementioned symptoms. Patient seen and evaluated in the emergency department. Lab and imaging studies reviewed. Patient found to have a pulse oximetry of 88% with exertion which is consistent with acute hypoxemic respiratory failure. Patient was also found to have a chest x-ray which revealed bilateral pneumonia. The patient was placed on supplemental oxygen as well as initiated on pneumonia protocol as well as the COVID-19 protocol and admitted to medical floor. Infectious disease service consulted in ED. Coronavirus PCR is ordered and pending at the time of the admission. Patient denies chest pain, palpitations, trauma, syncope, known ill contacts. No prior admission for review. No medication list for reconciliation at the time of admission. --Acute hypoxemic respiratory failure due to COVID 19 PNA cont supplemental oxygen, pulse oximetry, nebulizer therapy via MDI, pulmonary toilet, incentive spirometry, prone positioning while in bed. cont to treat for COVID 19 -- COVID 19 pneumonia Infectious disease service consulted in ED, contact precautions, isolation precautions, prone positioning while in bed Started on empiric steroid, also started on Ramdesivir for 5 days - last day tomorrow Follow inflammatory markers --Obesity diet and exercise recommendation when clinically stable assess for sleep apnea as outpt -- tobacco abuse, counselled for cessation -- DVT prophylaxis SCD to bilateral lower extremities while in bed, prophylactic heparin 06/12; continue IV steroid and continue Ramdesivir day 2. Continue to follow inflammatory markers. 06/13: continue IV steroid and continue Ramdesivir day3 - last day 06/15. will assess for home O2 on discharge 06/14: day 4 of Ramdesivir today. if clinicaly stable then d/c tomorrow after last dose of Ramdesivir with total 10 days of dexamethasone. assess for home o2. 06/15: Patient was seen and evaluated this morning, patient is saturating 94 percent on room air, patient does not have any shortness of breath, no fever. Patient finished Ramdesivir discharged with p.o. dexamethasone. Patient was hemodynamically stable at the time of discharge. Patient's questions and concerns were addressed at the bedside. Disposition: - TO HOME OR SELFCARE Time spent for discharge: 32 minutes - Discharge Diagnoses (1) COVID-19 Status: Acute (2) Acute hypoxemic respiratory failure Status: Acute (3) Obesity hypoventilation syndrome Status: Acute Core Measure Documentation - Palliative Care Palliative Care/ Comfort Measures: Not Applicable - Core Measures Any of the following diagnoses?: none Exam - Physical Exam Narrative exam: Not in cardiopulmonary distress. The patient is obese. Vital signs as documented. Head exam is unremarkable. No scleral icterus . Neck is without jugular venous distension, thyromegaly, or carotid bruits. Lungs are clear to auscultation. Cardiac exam reveals regular rate and Rhythm. Abdominal exam reveals normal bowel sounds, nontender, no organomegaly. Extremities are nonedematous and both femoral and pedal pulses are normal. 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 No focal weakness. - Constitutional Vitals: Temp Pulse Resp BP Pulse Ox 99.0 F 87 16 127/89 94 06/15/20 06:17 06/15/20 06:17 06/15/20 06:17 06/15/20 06:06/15/20 06:17 Plan Activity: no restrictions Weight Bearing Status: Full Weight Bearing Diet: regular Follow up with: RANDOLPH KIMBALL MD [Primary Care Provider] - 7 Days Prescriptions: Dexamethasone 6 mg PO DAILY #5 tablet
[2020-06-15] MEDS: HEPARIN 5,000 UNIT/1 ML VIAL SUB-Q SCH (10:12)
[2020-06-15] MEDS ORDERED: REMDESIVIR 100 MG in SODIUM CHLORIDE 0.9% 250ML 250 ML IV SCH (12:00)
--- NOTE | 2020-06-15 12:52 | Progress Note ---
Assessment and Plan Cultures: Blood culture 06/11/2020 pending A/P: 28-year-old man past medical history obesity, nicotine dependence admitted with COVID-19 #Acute hypoxemic respiratory failure: Likely secondary to COVID-19 infection. Currently on nasal cannula #Severe COVID-19 pneumonia: Patient presented with a week of symptoms, chest x- ray with diffuse bilateral infiltrates, admission O2 sats 88% on room air. Patient is increased for micro-thrombotic and thromboembolic events. #Obesity: Associated with worse COVID-19 outcomes Recs: -Continue Remdesivir 200 mg IV q day x 1 followed by 100 mg IV q day x 4 days. CrCl>30. Pharmacy notified. D5 of 5. -Continue steroids per primary. -Obtain daily inflammatory markers - ferritin, Ddimer, CRP, LDH -Anticoagulation per protocol -OK for DC from ID perspective when stable from a pulmonary standpoint. Thank you for the consult, we will continue to follow. Gayathri Mansfield MD [facility] ([facility]) M: [phone] O: [phone] F: [phone] Subjective Date of service: 06/15/20 Interval history: Afebrile, normal white count. On 3.5 L nasal cannula. Doing well. Objective - Exam Narrative Exam: Physical exam deferred due to PPE conservation strategy. Please refer to primary team's note. - Constitutional Vitals: Vital Signs Temp Pulse Resp BP Pulse Ox 99.0 F 87 16 127/89 94 06/15/20 06:17 06/15/20 06:17 06/15/20 06:17 06/15/20 06:17 06/15/20 09:53 Temperature -Last 24 Hours Temperature 99.0 F Temperature 98.6 F Temperature 97.3 F - Labs CBC & Chem 7: 06/12/20 05:25 06/12/20 05:25
[2020-06-15 13:20] VITALS: BP 135/85
== END 2020-06-15 14:03 | disposition home or self-care (01) | DRG 177 ==
LOC: ED 12:56 → 3A 14:37
PROVIDERS: ADMIT Internal Medicine; ATTEND Internal Medicine
PROC: XW033E5 Introduction of Remdesivir Anti-infective into Peripheral Vein, Percutaneous Approach, New Technology Group 5 (ICD-10-PCS; principal; 2020-06-11)
DX: U07.1 COVID-19 (principal); J12.89 Other viral pneumonia; J96.01 Acute respiratory failure with hypoxia; E66.2 Morbid (severe) obesity with alveolar hypoventilation; F17.210 Nicotine dependence, cigarettes, uncomplicated; Z68.34 Body mass index [BMI] 34.0-34.9, adult; Z82.49 Family history of ischemic heart disease and other diseases of the circulatory system
CPT/HCPCS: 36415; 71045; 80048; 80053; 81001; 82140; 82728; 82947; 83615; 84145; 85025; 85379; 86140; 87040; 93005; 94760; 96365; 96375; G0378; J0456; J0696; J1100; J1644; J2920; J7030; J7050; U0003-CS